=== PATIENT | female | born 1985 ===

== ENCOUNTER 2017-09-08 21:04 | Emergency (ER) | payer SELFPAY ==
[2017-09-08 21:27] VITALS: BMI 26.9
[2017-09-08] MEDS ORDERED: Lactated Ringer's 1,000 ML IV STA (21:59)
[2017-09-08 22:50] LABS: BASO % 0.2 % (0.0-2.0); EOS # 0.2 K/uL (0.0-0.7); HEMOGLOBIN 13.2 g/dL (12.0-16.0); LYMPH # 0.7 K/uL (1.0-4.3); LYMPH % 7.2 % (20.0-40.0); MEAN CELL VOLUME 86.3 fl (81.0-99.0); MEAN CORPUSCULAR HEMOGLOBIN 29.7 pg (27.0-31.0); MEAN CORPUSCULAR HGB CONC 34.4 g/dL (33.0-37.0); MONO # 0.5 K/uL (0.0-0.8); MONO % 5.1 % (0.0-10.0); NEUT # 8.8 K/uL (1.8-7.0); NEUT % 85.5 % (50.0-75.0); PLATELET COUNT 189 K/uL (130-400); RBC 4.44 Mil/uL (3.80-5.20); WHITE BLOOD COUNT 10.3 K/uL (4.8-10.8)
[2017-09-08 23:03] LABS: ALB/GLOB RATIO 1.3 (1.0-2.1); ALBUMIN 4.5 g/dL (3.5-5.0); ALT/SGPT 27 U/L (9-52); AST/SGOT 23 U/L (14-36); BLOOD UREA NITROGEN 15 mg/dl (7-17); CALCIUM 9.2 mg/dL (8.4-10.2); GFR AFRICAN-AMERICAN > 60; GFR NON-AFRICAN AMERICAN > 60; LIPASE 86 U/L (23-300)
[2017-09-08 23:17] LABS: BANDS 2 % (0-2); EOSINOPHIL 1 % (0-7); LYMPHOCYTE 7 % (20-50); MONOCYTE 6 % (0-10); NEUTROPHIL 84 % (42-75); PLATELET ESTIMATE NORMAL (NORMAL); TOTAL CELLS COUNTED 100
--- NOTE | 2017-09-08 23:27 | ED PDOC ---
HPI: Abdomen Time Seen by Provider: 09/08/17 21:35 Chief Complaint (Nursing): Abdominal Pain Chief Complaint (Provider): Abdominal Pain History Per: Patient History/Exam Limitations: no limitations Onset/Duration Of Symptoms: Hrs (since 3pm) Current Symptoms Are (Timing): Still Present Location Of Pain/Discomfort: Epigastric (Abdominal cramping pain) Associated Symptoms: Chills, Vomiting (x3), Diarrhea (x6 episdoes). denies: Urinary Symptoms Additional Complaint(s): 32 year old female presented to ED with complaints of vomiting and diarrhea since 15:00 today. Patient indicates 3 episodes of nonbilious and non bloody vomiting and 6 episodes of non watery diarrhea. She was also experiencing associated abdominal cramping pain in the epigastric area. Patient denies urinary systems but indicates feeling chills. PCP: non provided Past Medical History Reviewed: Historical Data, Nursing Documentation, Vital Signs Vital Signs: Last Vital Signs Temp 98.2 F 09/08/17 21:26 Pulse 75 09/08/17 21:26 Resp 16 09/08/17 21:26 BP 95/53 L 09/08/17 21:26 Pulse Ox 96 09/08/17 23:37 - Medical History PMH: No Chronic Diseases - Surgical History Surgical History: Cholecystectomy - Family History Family History: States: Unknown Family Hx - Social History Current smoker - smoking cessation education provided: No Alcohol: None Drugs: Denies - Home Medications Home Medications: Ambulatory Orders Medication Instructions Recorded Polymyxin B Sulfate/Trimetho 2 drop OP Q4 #1 alex 03/18/15 [Polymycin B/Trimethoprim Sulfate 63386 U/ml-1] Dicyclomine [Bentyl] 20 mg PO QID #30 tab 09/09/17 Ondansetron ODT [Zofran ODT] 1 odt PO Q6 PRN #20 odt 09/09/17 - Allergies Allergies/Adverse Reactions: Allergies Allergy/AdvReac Type Severity Reaction Status Date / Time No Known Allergies Allergy Verified 09/08/17 21:26 Review of Systems ROS Statement: Except As Marked, All Systems Reviewed And Found Negative Constitutional: Positive for: Chills Respiratory: Negative for: Other (urinary symptoms) Gastrointestinal: Positive for: Vomiting (x3), Abdominal Pain (abdominal cramping in epigastric area), Diarrhea (x6) Physical Exam - Reviewed Nursing Documentation Reviewed: Yes Vital Signs Reviewed: Yes - Physical Exam Appears: Positive for: Uncomfortable (slightly uncomfortable), In Acute Distress (acute painful distress) Head Exam: Positive for: ATRAUMATIC, NORMOCEPHALIC Skin: Positive for: Warm, Dry Eye Exam: Positive for: EOMI, PERRL ENT: Negative for: Pharyngeal Erythema, Tonsillar Exudate Neck: Positive for: Painless ROM, Supple Cardiovascular/Chest: Positive for: Regular Rate, Rhythm. Negative for: Murmur Respiratory: Positive for: Normal Breath Sounds. Negative for: Wheezing Gastrointestinal/Abdominal: Positive for: Soft, Tenderness (tenderness to palpation in epigastric area and bilateral upper quadrant). Negative for: Mass , Distended, Guarding, Rebound Back: Positive for: Normal Inspection. Negative for: Decreased ROM Extremity: Positive for: Normal ROM. Negative for: Deformity Lymphatic: Negative for: Adenopathy Neurologic/Psych: Positive for: Alert. Negative for: Motor/Sensory Deficits - Laboratory Results Result Diagrams: 09/08/17 22:30 09/08/17 22:30 - ECG O2 Sat by Pulse Oximetry: 96 (RA) Pulse Ox Interpretation: Normal Medical Decision Making Medical Decision Making: Initial Impression: Gastroenteritis Differentials include but not limited to dehydration, electrolyte abnormality, pancreatitis, viral syndrome Initial Plan: CMP Lipase ED urine ED urine dipstick CBC Lactated ringers 1000mL IV Pepcid 20mg IV Ondansetron ODT 4mg PO OVA and Parasite Stool culture 12On reeval pt feels better. symptoms improved. Labs unremarkable. DW pt findings and plan of care. Scribe Attestation: Documented by James Ovalles acting as a scribe for Clarita Howell MD. Provider Scribe Attestation: All medical record entries made by the Scribe were at my direction and personally dictated by me. I have reviewed the chart and agree that the record accurately reflects my personal performance of the history, physical exam, medical decision making, and the department course for this patient. I have also personally directed, reviewed, and agree with the discharge instructions and disposition. Disposition - Clinical Impression Clinical Impression: Gastroenteritis - Disposition Referrals: [facility] [Outside] Disposition: Routine/Home Disposition Time: 00:07 Condition: IMPROVED Prescriptions: Dicyclomine [Bentyl] 20 mg PO QID #30 tab Ondansetron ODT [Zofran ODT] 1 odt PO Q6 PRN #20 odt PRN Reason: Nausea/Vomiting Instructions: Gastroenteritis (ED) Forms: [facility] ED School/Work Excuse Print Language: HUNGARIAN
[2017-09-09 02:16] VITALS: BP 100/62; PULSE 72; RESP 18; TEMP 99.1; O2SAT 99
== END 2017-09-09 02:25 | disposition home or self-care (01) ==
LOC: H.ER 21:04
DX: K52.9 Noninfective gastroenteritis and colitis, unspecified (principal)
CPT/HCPCS: 80053; 83690; 85025; 87045; 87177; 87209; 96361; 96374; 99284; J7120

== ENCOUNTER 2017-12-25 14:08 | Emergency (ER) | payer SELFPAY ==
[2017-12-25 14:08] VITALS: BMI 26.9
[2017-12-25 14:15] VITALS: BP 101/65; PULSE 82; RESP 22; TEMP 97; O2SAT 99
--- NOTE | 2017-12-25 14:26 | ED PDOC ---
HPI: Eye Injury/Pain Time Seen by Provider: 12/25/17 14:22 Chief Complaint (Nursing): Eye Problem Chief Complaint (Provider): swelling to both eyes History Per: Patient Additional Complaint(s): 32-year-old female presents with bilateral periorbital swelling for 3 days. Patient was seen by physical medicine physician today and was told she has normal eye exam but that he is concerned about possible cellulitis. She was advised to follow- up with primary doctor but came to ED instead as she does not have PMD. Patient denies any vision changes, denies any foreign body sensation to either eye. She does not wear contact lenses or glasses PMD: none Past Medical History Reviewed: Historical Data, Nursing Documentation, Vital Signs Vital Signs: Last Vital Signs Temp 97 F L 12/25/17 14:13 Pulse 82 12/25/17 14:13 Resp 22 12/25/17 14:13 BP 101/65 12/25/17 14:13 Pulse Ox 99 12/25/17 14:13 - Medical History PMH: No Chronic Diseases - Surgical History Surgical History: Cholecystectomy - Family History Family History: States: No Known Family Hx - Living Arrangements Living Arrangements: With Family - Social History Current smoker - smoking cessation education provided: No Alcohol: None Drugs: Denies - Home Medications Home Medications: Ambulatory Orders Medication Instructions Recorded Polymyxin B Sulfate/Trimetho 2 drop OP Q4 #1 alex 03/18/15 [Polymycin B/Trimethoprim Sulfate 62498 U/ml-1] Dicyclomine [Bentyl] 20 mg PO QID #30 tab 09/09/17 Ondansetron ODT [Zofran ODT] 1 odt PO Q6 PRN #20 odt 09/09/17 Clindamycin [Cleocin] 300 mg PO QID #28 cap 12/25/17 Polymyxin/Trimethoprim Sulfate 1 drop TOP Q6 #1 bottle 12/25/17 [Polytrim Ophth Soln] Prednisone 50 mg PO DAILY #5 tablet 12/25/17 - Allergies Allergies/Adverse Reactions: Allergies Allergy/AdvReac Type Severity Reaction Status Date / Time No Known Allergies Allergy Verified 09/08/17 21:26 Review of Systems ROS Statement: Except As Marked, All Systems Reviewed And Found Negative Constitutional: Negative for: Fever, Chills Eyes: Positive for: Other (Periorbital swelling to both) Physical Exam - Reviewed Nursing Documentation Reviewed: Yes Vital Signs Reviewed: Yes - Physical Exam Appears: Positive for: Well, Non-toxic, No Acute Distress Skin: Positive for: Normal Color. Negative for: Rash Eye Exam: Positive for: EOMI, PERRL, Other (Mild periorbital edema and erythema noted bilaterally, no abscess formation, no active drainage from either eye, mild conjunctival injection bilaterally). Negative for: Nystagmus ENT: Positive for: Normal ENT Inspection Cardiovascular/Chest: Positive for: Regular Rate, Rhythm Respiratory: Positive for: Normal Breath Sounds Extremity: Positive for: Normal ROM Neurologic/Psych: Positive for: Alert, Oriented - Laboratory Results Urine POC: Negative - ECG O2 Sat by Pulse Oximetry: 99 Pulse Ox Interpretation: Normal Medical Decision Making Medical Decision Makin-year-old with mild bilateral periorbital cellulitis Patient given prescriptions for clindamycin and prednisone as well as Polytrim eyedrops. She was advised to apply warm compresses to affected area and have re- evaluation in 1-2 days. Patient was instructed to return immediately if acutely worse. Disposition - Clinical Impression Clinical Impression: Periorbital edema, Cellulitis of periorbital region of both eyes - Patient ED Disposition Is Patient to be Admitted: No Counseled Patient/Family Regarding: Diagnosis, Need For Followup, Rx Given - Disposition Referrals: [facility] [Outside] Disposition: Routine/Home Disposition Time: 14:26 Condition: STABLE Additional Instructions: Take prescription meds as directed. [id number] Motrin for pain as needed. Follow-up with clinic or return to emergency department in 2-3 days. Prescriptions: Clindamycin [Cleocin] 300 mg PO QID #28 cap Polymyxin/Trimethoprim Sulfate [Polytrim Ophth Soln] 1 drop TOP Q6 #1 bottle Prednisone 50 mg PO DAILY #5 tablet Instructions: Cellulitis (Skin Infection), Adult (DC) Forms: [employer] (Occitan) Print Language: [place] ISLANDER
== END 2017-12-25 15:06 | disposition home or self-care (01) ==
LOC: H.ER 14:08
DX: L03.213 Periorbital cellulitis (principal)